=== PATIENT | female | born 1965 ===

== ENCOUNTER → 2017-12-16 | Outpatient (REF) ==
[2017-12-17 10:57] LABS: RUBELLA IgG QUALITATIVE IMMUNE (IMMUNE)
[2017-12-18 08:06] LABS: RUBEOLA IgG ANTIBODY 82.3 AU/mL (Immune >29.9)
[2017-12-18 08:06] LABS: HERPES ZOSTER, VARICELLA IgG 543 index (Immune >165)
== END ==
LOC: M WUC 14:23
DX: Z00.00 Encounter for general adult medical examination without abnormal findings (principal)